=== PATIENT | female | born 1975 | race African-American/Black ===

== ENCOUNTER 2017-04-08 07:35 | Emergency (ER) | payer MEDICAID, OTHER ==
[~2017-04-08] VITALS: Ht 180.3 cm; Wt 84.0 kg
[2017-04-08 07:38] VITALS: Ht 180.3 cm; Wt 84.0 kg
[2017-04-08 08:24] LABS: URINE BLOOD (Dip) POC 3+ (NEGATIVE)
[2017-04-08] MEDS ORDERED: MECL12.574 PO (08:42)
--- NOTE | 2017-04-08 09:15 | ERD ---
ER Documentation Chief Complaint Date/Time DATE: 04/08/17 TIME: 09:10 Chief Complaint dizziness and vomiting since last night HPI 41 yr old female Complaining of dizziness 1 day. Patient denies headache or head trauma. Patient denies vomiting. Patient has never had this before. Denies fever. Denies visual changes. Denies chest pain or shortness of breath. Last normal menstrual period was 04/02/17. Patient has not taken medications for symptoms. Patient states she feels the room is spinning. Patient does not have loss of consciousness or difficulties ambulating. ROS All systems reviewed and are negative except as per history of present illness. Medications Home Meds Active Scripts Meclizine Hcl* (Antivert*) 12.5 Mg Tab, 12.5 MG PO Q6H Y for DIZZINESS, #20 TAB Prov:ROSA MARIA MARQUEZ PA-C 04/08/17 PMhx/Soc History of Surgery: No Anesthesia Reaction: No Hx Neurological Disorder: No Hx Respiratory Disorders: No Hx Cardiac Disorders: No Hx Psychiatric Problems: No Hx Miscellaneous Medical Probl: No Hx Alcohol Use: No Hx Substance Use: No Hx Tobacco Use: Yes Smoking Status: Current every day smoker Physical Exam Vitals Vital Signs Date Time Temp Pulse Resp B/P Pulse Ox O2 Delivery O2 Flow Rate FiO2 04/08/17 07:38 97.8 75 18 138/77 99 Physical Exam GENERAL: The patient is well-appearing, well-nourished, in no acute distress HEENT: Atraumatic. Conjunctivae are pink. Pupils equal, round, and reactive to light. There is no scleral icterus. Tympanic membranes clear bilaterally. Oropharynx clear. No nystagmus or photophobia. NECK: C-spine is soft and supple. There is no meningismus. There is no cervical lymphadenopathy. No JVD. No bruits. No goiter. CHEST: Clear to auscultation bilaterally. There are no rales, wheezes or rhonchi. HEART: Regular rate and rhythm. No murmurs, clicks, rubs or gallops. No S3 or S4. ABDOMEN:Soft, nontender and nondistended. Good bowel sounds. No rebound or guarding. No gross peritonitis. No gross organomegaly or masses. No Guevara sign or McBurney point tenderness. BACK: No midline or flank tenderness. EXTREMITIES: Equal pulses bilaterally. There is no peripheral clubbing, cyanosis or edema. No focal swelling or erythema. Full range of motion. Grossly neurovascularly intact. NEUROLOGIC: Alert and oriented. Cranial nerves II through XII intact. Motor strength in all 4 extremities with 5 out of 5 strength. Sensation grossly intact. Normal speech and gait. Babinski negative. DTR 2+ throughout. HEMATOLOGIC AND LYMPHATIC: There is no evidence of excessive bruising or lymphadenopathy. No gross cervical, axillary, or inguinal lymphadenopathy. Results 24 hrs Laboratory Tests Test 04/08/17 08:18 04/08/17 08:30 Bedside Glucose 107mg/dL Bedside Urine pH (LAB) 7.0 Bedside Urine Protein (LAB) 1+ Bedside Urine Glucose (UA) Negative Bedside Urine Ketones (LAB) Negative Bedside Urine Blood 3+ Bedside Urine Nitrite (LAB) Negative Bedside Urine Leukocyte Esterase (L Negative Procedures/MDM EKG: NSR. Reviewed and signed off by Dr. Henry. Normal axis. NO STEMI. 71 BPM. No Arrhythmia MDM: 41 yr old female complaining of dizziness. I have low suspicion for neuro deficit. Low suspicion for Meningitis or sepsis. Low suspicion for hypo-or hyperglycemia. Patient's Accu-Chek is within normal limits. Patient's vital signs and exams are within normal limits. I did not feel there is indication for CT scan at today's visit. Patient will be discharged on meclizine and given strict ER precautions. I have low suspicion for hypovolemia as patient's vital signs are stable. Patient's urine is negative. I have low suspicion for acute abdominal etiology. Patient's exam is not concerning. I will suspicion for cardiac emergency, patient's EKG is within normal limits and patient is not complaining of chest pain. Departure Diagnosis: Primary Impression: Dizziness Condition: Stable Patient Instructions: Dizziness, Unk Cause Referrals: COMMUNITY CLINICS YOU HAVE RECEIVED A MEDICAL SCREENING EXAM AND THE RESULTS INDICATE THAT YOU DO NOT HAVE A CONDITION THAT REQUIRES URGENT TREATMENT IN THE EMERGENCY DEPARTMENT. FURTHER EVALUATION AND TREATMENT OF YOUR CONDITION CAN WAIT UNTIL YOU ARE SEEN IN YOUR DOCTORS OFFICE WITHIN THE NEXT 1-2 DAYS. IT IS YOUR RESPONSIBILITY TO MAKE AN APPOINTMENT FOR FOLOW-UP CARE. IF YOU HAVE A PRIMARY DOCTOR --you should call your primary doctor and schedule an appointment IF YOU DO NOT HAVE A PRIMARY DOCTOR YOU CAN CALL OUR PHYSICIAN REFERRAL HOTLINE AT IF YOU CAN NOT AFFORD TO SEE A PHYSICIAN YOU CAN CHOSE FROM THE FOLLOWING [facility] [address] [facility] [address] [facility] [facility] [address] [facility] [address] [facility]. [facility] [address] [facility]. [facility] [address] Additional Instructions: FOLLOW UP WITH YOUR PRIMARY CARE PHYSICIAN TOMORROW.Return to this facility if you are not improving as expected. ROSA MARIA MARQUEZ PA-C Apr 08, 2017 09:15
== END 2017-04-08 08:46 | disposition home or self-care (01) ==
LOC: FTE 07:35
DX: R42 Dizziness and giddiness (principal); F17.210 Nicotine dependence, cigarettes, uncomplicated
CPT/HCPCS: 81003; 82962; 93005; Z7502

== ENCOUNTER 2017-04-12 20:51 | Emergency (ER) | payer MEDICAID ==
[~2017-04-12] VITALS: Ht 180.3 cm; Wt 85.5 kg
[~2017-04-12 20:51] MED LIST: MECL12.574 PO
[2017-04-12 20:55] VITALS: Ht 180.3 cm; Wt 85.5 kg
[2017-04-13] MEDS ORDERED: SOD CHLORIDE 0.9% 1,000 ML IV STA (00:10)
--- NOTE | 2017-04-13 00:17 | ERD ---
ER Documentation Chief Complaint Date/Time DATE: 04/13/17 TIME: 00:15 Chief Complaint nausea and dizziness with head movement today HPI 41-year-old female presents in emergency department for complaints of dizziness and nausea on sudden movement that she been happening for the last 5 days. Patient was seen here in emergency department 4 days ago for the same problem, patient was given meclizine home with only mild relief. Patient states that she has been rehydrating at home but continues to have the symptoms. Patient denies any headache. Patient states that she only gets the spinning sensation on movement, she describes the dizziness as a spinning sensation, she feels like her head is spinning. Patient denies any chest pain or palpitations. Patient denies any vomiting. Patient denies any head injury. Patient denies any vision changes. Patient denies any headache. Patient denies any ear pain. Patient denies any ear discharge. Patient denies any congestion. ROS All systems reviewed and are negative except as per history of present illness. Medications Home Meds Active Scripts Meclizine Hcl* (Antivert*) 12.5 Mg Tab, 12.5 MG PO Q6H Y for DIZZINESS, #20 TAB Prov:ROSA MARIA MARQUEZ PA-C 04/08/17 Allergies Allergies: Coded Allergies: No Known Allergy (Unverified , 04/12/17) PMhx/Soc Medical and Surgical Hx: pt denies Medical Hx History of Surgery: Yes (c/s) Anesthesia Reaction: No Hx Neurological Disorder: No Hx Respiratory Disorders: No Hx Cardiac Disorders: No Hx Psychiatric Problems: No Hx Miscellaneous Medical Probl: No Hx Alcohol Use: No Hx Substance Use: No Hx Tobacco Use: Yes FmHx Family History: No coronary disease, No diabetes, No other Physical Exam Vitals Vital Signs Date Time Temp Pulse Resp B/P Pulse Ox O2 Delivery O2 Flow Rate FiO2 04/12/17 20:55 98.8 72 16 137/79 98 Physical Exam GENERAL: The patient is well developed and appropriate for usual state of health, in no apparent distress. CHEST: Clear to auscultation bilaterally. There are no rales, wheezes or rhonchi. HEART: Regular rate and rhythm. No murmurs, clicks, rubs or gallops. No S3 or S4. ABDOMEN: Soft, nontender and nondistended. Good bowel sounds. No rebound or guarding. No gross peritonitis. No gross organomegaly or masses. No Guevara sign or McBurney point tenderness. BACK: No midline or flank tenderness. EXTREMITIES: Equal pulses bilaterally. There is no peripheral clubbing, cyanosis or edema. No focal swelling or erythema. Full range of motion. Grossly neurovascularly intact. NEURO: Alert and oriented. Cranial nerves 2-12 intact. Motor strength in all 4 extremities with 5/5 strength. Sensation grossly intact. Normal speech and gait. + gilberto angelo pike exam SKIN: There is no apparent rash or petechia. The skin is warm and dry. HEMATOLOGIC AND LYMPHATIC: There is no evidence of excessive bruising or lymphedema. No gross cervical, axillary, or inguinal lymphadenopathy. Result Diagram: 04/13/17 0025 04/13/17 0025 Results 24 hrs Laboratory Tests Test 04/13/17 00:20 04/13/17 00:25 Urine Color STRAW Urine Clarity CLEAR Urine pH 7.0 Urine Specific [place] 1.003 Urine Ketones NEGATIVEmg/dL Urine Nitrite NEGATIVEmg/dL Urine Bilirubin NEGATIVEmg/dL Urine Urobilinogen NEGATIVEmg/dL Urine Leukocyte Esterase NEGATIVELeu/ul Urine Microscopic RBC 1/HPF Urine Microscopic WBC 0/HPF Urine Bacteria FEW/HPF Urine Hemoglobin 2+mg/dL Urine Glucose NEGATIVEmg/dL Urine Total Protein NEGATIVEmg/dl White Blood Count 12.910^3/ul Red Blood Count 4.5310^6/ul Hemoglobin 13.1g/dl Hematocrit 40.1% Mean Corpuscular Volume 88.5fl Mean Corpuscular Hemoglobin 28.9pg Mean Corpuscular Hemoglobin Concent 32.7g/dl Red Cell Distribution Width 12.7% Platelet Count 04736^3/UL Mean Platelet Volume 9.2fl Neutrophils % 65.2% Lymphocytes % 26.8% Monocytes % 4.5% Eosinophils % 2.8% Basophils % 0.2% Nucleated Red Blood Cells % 0.0/100WBC Neutrophils # (Manual) 8.410^3/ul Lymphocytes # 3.410^3/ul Monocytes # 0.610^3/ul Eosinophils # 0.410^3/ul Basophils # 0.010^3/ul Nucleated Red Blood Cells # 0.010^3/ul Sodium Level 137mmol/L Potassium Level 4.4mmol/L Chloride Level 102mmol/L Carbon Dioxide Level 24mmol/L Anion Gap 15 Blood Urea Nitrogen 7mg/dl Creatinine 0.72mg/dl Glucose Level 98mg/dl Calcium Level 9.7mg/dl Total Bilirubin 0.1mg/dl Direct Bilirubin 0.00mg/dl Indirect Bilirubin 0.1mg/dl Aspartate Amino Transf (AST/SGOT) 24IU/L Alanine Aminotransferase (ALT/SGPT) 31IU/L Alkaline Phosphatase 79IU/L Total Protein 7.6g/dl Albumin 4.3g/dl Globulin 3.30g/dl Albumin/Globulin Ratio 1.30 Current Medications Medications (Trade) Dose Ordered Sig/Lisa Route PRN Reason Start Time Stop Time Status Last Admin Dose Admin Sodium Chloride (NS) 1,000 ml @ 1,000 mls/hr Q1H STAT IV 04/13/17 00:10 04/13/17 01:09 DC 04/13/17 00:35 Meclizine HCl (Antivert) 25 mg ONCE ONCE PO 04/13/17 00:30 04/13/17 00:31 DC 04/13/17 00:35 Normal saline IV bolus was given here in emergency department for rehydration, patient tolerated IV fluids. Meclizine was given here in the ER PROCEDURE: CT Brain without contrast. CLINICAL INDICATION: Altered mental status, dizziness TECHNIQUE: Routine CT scan of the brain was performed on a high resolution multi detector scanner without intravenous contrast. One or more of the following dose reduction techniques were used: Automated exposure control; Adjustment of the mA and/or kV according to patient size; Use of iterative reconstruction technique. CTDI = 45 mGy. DLP = 720 mGy-cm. COMPARISON: No prior relevant examinations are available for comparison. FINDINGS: Examination is degraded due to patient motion artifact. Hemorrhage: No evidence of intracranial hemorrhage. Acute ischemic changes: No evidence of acute ischemic changes. Mass effect: None. Parenchymal volume: Within normal limits for age. Ventricular system: Concordant with parenchymal volume. Chronic changes: Parenchymal attenuation is within normal limits. Extracranial soft tissues: Unremarkable. Calvarium: No fractures. Paranasal sinuses: Visualized paranasal sinuses are clear. Mastoid air cells: Visualized mastoid air cells are clear. IMPRESSION: No acute intracranial abnormalities. Normal appearance of the brain parenchyma. RPTAT: AADD .Sukumar Thibodeaux MD, MD Date Time Electronically viewed and signed by .Sukumar Thibodeaux MD, on 04/13/2017 02:28 .B/ CC: RICARDO ZAYAS NP Procedures/MDM Medical Decision Making: Patient symptoms are consistent with Benign positional vertigo . There is low suspicion for neurological emergencies at this time since patients neurologic exam is normal. Patient did not have any altered level consciousness, vomiting, changes in balance or memory and did not have any head injury. Patients CT scan of the head does not show any neurological emergencies at this time. Rx Continue Meclizine Follow-up with, care doctor in 1-2 days for reevaluation , patient is advised to return to emergency department for any worsening symptoms Dispostion: Home. Stable Departure Diagnosis: Primary Impression: Benign positional vertigo Laterality: unspecified laterality Qualified Code: H81.10 - Benign paroxysmal positional vertigo, unspecified laterality Condition: Stable Patient Instructions: Benign Positional Vertigo Additional Instructions: Rx Continue Meclizine Follow-up with, care doctor in 1-2 days for reevaluation , patient is advised to return to emergency department for any worsening symptoms RICARDO ZAYAS NP Apr 13, 2017 00:17
[2017-04-13] MEDS ORDERED: MECLIZINE 12.5 MG TAB PO ONE (00:30)
[2017-04-13 00:49] LABS: BASOPHILS % 0.2 % (0.0-2.0); EOSINOPHILS # 0.4 10^3/ul (0.0-0.5); EOSINOPHILS % 2.8 % (0.0-7.0); HEMATOCRIT 40.1 % (37.0-47.0); HEMOGLOBIN 13.1 g/dl (12.0-16.0); LYMPHOCYTES # 3.4 10^3/ul (0.8-2.9); LYMPHOCYTES % 26.8 % (15.0-51.0); MEAN CORPUSCULAR HEMOGLOBIN 28.9 pg (29.0-33.0); MEAN CORPUSCULAR HGB CONC 32.7 g/dl (32.0-37.0); MEAN CORPUSCULAR VOLUME 88.5 fl (82.0-101.0); MEAN PLATELET VOLUME 9.2 fl (7.4-10.4); MONOCYTE # 0.6 10^3/ul (0.3-0.9); MONOCYTES % 4.5 % (0.0-11.0); NEUTROPHILS % 65.2 % (39.0-77.0); PLATELET COUNT 258 10^3/UL (140-415); RED BLOOD COUNT 4.53 10^6/ul (4.20-5.40); RED CELL DISTRIBUTION WIDTH 12.7 % (11.5-14.5); WHITE BLOOD COUNT 12.9 10^3/ul (4.8-10.8)
[2017-04-13 01:05] LABS: ALBUMIN 4.3 g/dl (3.3-4.9); ALBUMIN/GLOBULIN RATIO 1.3; BILIRUBIN,INDIRECT 0.1 mg/dl (0-1.1); BILIRUBIN,TOTAL 0.1 mg/dl (0.2-1.3); CALCIUM 9.7 mg/dl (8.4-10.2); CREATININE 0.72 mg/dl (0.44-1.00); POTASSIUM 4.4 mmol/L (3.5-5.1); TOTAL PROTEIN 7.6 g/dl (6.1-8.1)
[2017-04-13 01:31] LABS: ADD UMIC YES; UR ASCORBIC ACID NEGATIVE (NEGATIVE); UR BACTERIA FEW /HPF (NONE SEEN); UR BILIRUBIN (Dip) NEGATIVE (NEGATIVE); UR BLOOD (Dip) 2+ mg/dL (NEGATIVE); UR CLARITY CLEAR (CLEAR); UR COLOR STRAW (YELLOW); UR GLUCOSE (Dip) NEGATIVE (NEGATIVE); UR KETONES (Dip) NEGATIVE (NEGATIVE); UR LEUKOCYTE ESTERASE (Dip) NEGATIVE Leu/ul (NEGATIVE); UR NITRITE (Dip) NEGATIVE (NEGATIVE); UR RBC 1 /HPF (0-5); UR SPECIFIC GRAVITY (Dip) 1.003 (1.003-1.030); UR TOTAL PROTEIN (Dip) NEGATIVE (NEGATIVE); UR UROBILINOGEN (Dip) NEGATIVE (NEGATIVE)
--- NOTE | 2017-04-13 02:28 | RADRPT ---
PROCEDURE: CT Brain without contrast. CLINICAL INDICATION: Altered mental status, dizziness TECHNIQUE: Routine CT scan of the brain was performed on a high resolution multi detector scanner without intravenous contrast. One or more of the following dose reduction techniques were used: Auto mated exposure control; Adjustment of the mA and/or kV according to patient size; Use of iterative r econstruction technique. CTDI = 45 mGy. DLP = 720 mGy-cm. COMPARISON: No prior relevant examinations are available for comparison. FINDINGS: Examination is degraded due to patient motion artifact. Hemorrhage: No evidence of intracranial hemorrhage. Acute ischemic changes: No evidence of acute ischemic changes. Mass effect: None. Parenchymal volume: Within normal limits for age. Ventricular system: Concordant with parenchymal volume. Chronic changes: Parenchymal attenuation is within normal limits. Extracranial soft tissues: Unremarkable. Calvarium: No fractures. Paranasal sinuses: Visualized paranasal sinuses are clear. Mastoid air cells: Visualized mastoid air cells are clear. IMPRESSION: No acute intracranial abnormalities. Normal appearance of the brain parenchyma. RPTAT: AADD .Sukumar Thibodeaux MD, MD Date Time Electronically viewed and signed by .Sukumar Thibodeaux MD, on 04/13/2017 02:28 .B/
== END 2017-04-13 03:05 | disposition home or self-care (01) ==
LOC: FTE 20:51
DX: H81.10 Benign paroxysmal vertigo, unspecified ear (principal); Z87.891 Personal history of nicotine dependence
CPT/HCPCS: 36415; 70450; 80053; 81001; 85025; J7030; Z7502; Z7610